=== PATIENT | female | born 1960 | race Caucasian/White ===

== ENCOUNTER → 2019-12-19 | Outpatient (CLI) | payer OTHER ==
--- NOTE | 2019-12-19 17:51 | P ---
[facility] [place] [address] PROCEDURE REPORT Name: DAVID FUNES Room #: REG [facility].#: [id number] Admission: 12/19/19 Attend Phys: Raul Milligan MD Discharge: Date of : 58 Report #: [id number] THIS REPORT FOR: cc: Elena Cottrell MD, Lisa A. MD Thesing,Raul Oliver MD ~ CC: Raul Cottrell MD OUTPATIENT COLOSCOPY REPORT BRIEF HISTORY: The patient is a 59-year-old woman, who has had recent change in bowel habits with multiple loose and watery stools. She had a cholecystectomy many years ago. Diarrhea was not a problem after her cholecystectomy. She also has a history of psoriatic arthritis. PREOPERATIVE DIAGNOSIS: Change in bowel habits with diarrheal stools. POSTOPERATIVE DIAGNOSES: Mild sigmoid diverticulosis coli. MEDICATIONS: Deep sedation with propofol per anesthesia. SPECIMENS: 1. Random biopsies of proximal colon, rule out microscopic colitis. 2. Random biopsies of distal colon and rectum, rule out microscopic colitis. ESTIMATED BLOOD LOSS: 3 mL. PROCEDURE: Colonoscopy to cecum and terminal ileum with biopsy. FINDINGS: Prior to propofol sedation, procedure of colonoscopy discussed with the patient as well as potential risks, benefits, and complications. She indicates she understands and desires to proceed. DESCRIPTION OF PROCEDURE: With the patient in left lateral decubitus position, digital examination was completed, which revealed no abnormalities. Subsequently, the Olympus video colonoscope was introduced into the rectum, advanced under direct vision to the cecum. Done with minimal difficulty. Cecum was identified by the ileocecal valve and the appendiceal orifice. I was able to visualize the distal segment of terminal ileum, which was inspected and noted to be unremarkable. At that point, the scope was slowly withdrawn and careful circumferential views were obtained. Upon slow withdrawal of the scope, the prep was excellent. Mucosa was within normal limits, normal vascular pattern, and normal light reflex. As we withdrew the scope, no mucosal or inflammatory changes were seen. There was no endoscopic evidence of colitis. Neoplastic changes were not seen. Random biopsies obtained of the colon. In the [address] [address] PROCEDURE REPORT Name: MARINDAVID MIMI Room #: REG [facility] Farida.#: [id number] Admission: 12/19/19 Attend Phys: Raul Milligan MD Discharge: Date of : 58 Report #: [id number] colon, there were a few scattered diverticula. There was no endoscopic evidence of diverticulitis. Scope was further withdrawn and no additional abnormalities were seen. Scope was withdrawn in the rectum, no abnormalities were seen. Upon retroflexion, no abnormalities were seen. The scope was withdrawn. The patient tolerated the procedure well. CONDITION OF THE PATIENT UPON DISCHARGE: Following procedure, the patient drowsy and arousable, will be discharged home when fully ambulatory. INSTRUCTIONS TO THE PATIENT AND FAMILY AT THE TIME OF DISCHARGE: We will follow up on biopsies and make further recommendations as needed. In the meantime, suggest dicyclomine 10 mg before meals and at bedtime for rectal urgency and frequency. If biopsies are nondiagnostic, she may need further intervention or evaluation. Treatment for irritable bowel syndrome with diarrhea may be a consideration. Treating with cholestyramine may be a consideration due to previous cholecystectomy. If she continues to have problems, she will return to see me in followup in the office. Please note last colonoscopy was about 10 years ago. Withdrawal time from the cecum was 11 minutes and 41 seconds. <ELECTRONICALLY SIGNED> By: Raul Milligan MD 12/19/19 1751 [id number] [id number] Rual Milligan MD /nt
--- NOTE | 2019-12-19 17:51 | P ---
[facility] [place] [address] PROCEDURE REPORT Name: DAVID FUNES [id number] Admission: 12/19/19 Attend Phys: Raul Milligan MD Discharge: Date of : 58 Report #: [id number] THIS REPORT FOR: cc: Elena Cottrell MD,Elena Milligan,Raul Oliver MD ~ CC: Raul Cottrell MD OUTPATIENT UPPER ENDOSCOPY REPORT BRIEF HISTORY: The patient is a 59-year-old woman with increasing reflux symptoms and intermittent solid food dysphagia. She does have a history of Schatzki ring and previous dilation. PREOPERATIVE DIAGNOSIS: Increasing reflux symptoms on therapy and intermittent solid food dysphagia. POSTOPERATIVE DIAGNOSES: 1. Diffuse gastritis. 2. Small hiatus hernia. 3. Moderate Schatzki ring. MEDICATIONS: Deep sedation with propofol per anesthesia. SPECIMEN: Small bowel biopsies to rule out celiac disease. She also has diarrhea. ESTIMATED BLOOD LOSS: 3 mL. PROCEDURE: EGD with biopsy, Leos dilation. FINDINGS: Prior to propofol sedation, procedure of upper endoscopy discussed with the patient as well as potential risks and its complications. She indicates she understands and desires to proceed. DESCRIPTION OF PROCEDURE: With the patient in left lateral decubitus position, the Olympus video endoscope was inserted in cervical esophagus under direct vision without difficulty. Examination of this organ through its entire style revealed normal esophageal mucosa down to the squamocolumnar junction. At this level, moderate Schatzki ring was seen. The mucosa was intact. No ulcers, erosions or Tam mucosa was seen. Intermittently, a small 2-3 cm sliding type hiatus hernia was seen. Scope was advanced into the stomach, which was examined on end view as well as retroflexed views. There was a pattern of diffuse gastritis, previous biopsies were done for H. pylori in 2016 and those were negative for H. pylori and they were not repeated today. Upon [facility] [address] [place] [address] PROCEDURE REPORT Name: DAVID FUNES MIMI Room #: REG [facility]#: [id number] Admission: 12/19/19 Attend Phys: Raul Milligan MD Discharge: Date of : 58 Report #: [id number] retroflexion, the hiatus hernia was seen. No other abnormalities were identified. The pylorus was normal. Duodenal bulb was normal. Duodenal sweep was normal down the third portion. Multiple biopsies obtained of the small bowel to evaluate for celiac disease in view of her diarrhea. At that point, the scope was slowly withdrawn and careful circumferential views confirmed the above findings. The patient tolerated the procedure well. Subsequently, her ring was dilated with passage of 54-Icelandic Leos dilator. There was no resistance. CONDITION OF THE PATIENT UPON DISCHARGE: Following procedure, the patient drowsy and prepared for colonoscopy. INSTRUCTIONS TO THE PATIENT AND FAMILY AT THE TIME OF DISCHARGE: We will have her use pantoprazole 40 mg daily and famotidine 40 mg at bedtime. If symptoms do not completely resolve, she may require a higher dose of pantoprazole. I did not see evidence of bile reflux gastritis. It is noted she has had a previous cholecystectomy. She is to return for dilation on an as needed basis due to symptoms of recurrent dysphagia. We will proceed with colonoscopy at this time. <ELECTRONICALLY SIGNED> By: Raul Milligan MD 12/19/19 1751 [id number] Raul Milligan MD /nt
--- NOTE | 2019-12-22 17:07 | PATH ---
[facility] [place] [address] PATHOLOGY RPT PROCEDURE Name: NOHEMI GRAVES MIMI Room #: REG [facility] Farida.#: [id number] Admission: 12/19/19 Date of : 58 Discharge: Report #: [id number] Path Case #: [id number] [facility] Accession Number: [id number] . 01 Material submitted: . PART A: small bowel - BX SMALL BOWEL PART B: colon - RANDOM BX PROXIMAL COLON. Modifiers: proximal PART C: colon - RANDOM BX DISTAL COLON AND RECTUM. Modifiers: distal . 01 Clinical history: . Abdominal pain, diarrhea, Schatzki ring, hiatus hernia, diverticulosis. . 02 Diagnosis: A. Small bowel mucosa, small bowel rule out celiac disease, endoscopic biopsy: - Moderate acute and chronic duodenitis associated with focal fundic-type mucosa, consistent with peptic duodenitis. - Minimal villous blunting identified. - No increase in intraepithelial lymphocytes. . B. Large intestinal mucosa, random proximal colon, endoscopic biopsy: - Scattered rare nonspecific reactive changes. - Negative for acute colitis. - Negative for dysplasia or malignancy. . C. Large intestinal mucosa, distal colon and rectum, endoscopic biopsy: - Scattered rare nonspecific reactive changes. - Negative for acute colitis. - Negative for dysplasia or malignancy. . 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 02 Electronically signed: . Karis Zepeda MD, Pathologist NPI- [id number] . 01 Gross description: . A. Received in formalin labeled "Nohemi Graves, BX small bowel rule out celiac" is a 1.5 x 0.5 x 0.1 cm aggregate of aleman-brown soft tissue fragments. The specimen is submitted entirely in A1. . B. Received in formalin labeled "Nohemi Graves, random BX proximal colon" is a 2.2 x 0.6 x 0.1 cm aggregate of aleman-brown soft tissue fragments. The specimen is submitted entirely in B1. . C. Received in formalin labeled "Nohemi Graves, random BX distal colon [address] [address] PATHOLOGY RPT PROCEDURE Name: NOHEMI GRAVES MIMI Room #: REG [facility]#: [id number] Admission: 12/19/19 Date of : 58 Discharge: Report #: [id number] Path Case #: [id number] and rectum" is a 1.4 x 0.7 x 0.1 cm aggregate of aleman-brown soft tissue fragments. The specimen is submitted entirely in C1. ([facility]; 12/21/2019) [facility] 12/21/2019 1236 Local . 02 Pathologist provided ICD-10: K29.80, R10.9, R19.7, K44.9, K57.90 . 02 CPT . 677365, [id number], 330535 Performed at: [address] [id number] MD Nils Sutton MD Phone: [phone] Performed at: [address] [id number] MD Karis Zepeda MD Phone: [phone]
== END | disposition home or self-care (01) ==
LOC: GI 07:46
DX: R19.4 Change in bowel habit (principal); R19.7 Diarrhea, unspecified; K57.30 Diverticulosis of large intestine without perforation or abscess without bleeding; R13.19 Other dysphagia; K29.70 Gastritis, unspecified, without bleeding; K29.80 Duodenitis without bleeding; K44.9 Diaphragmatic hernia without obstruction or gangrene; K22.2 Esophageal obstruction; Z90.49 Acquired absence of other specified parts of digestive tract
CPT/HCPCS: 62110; 62900; 70005